=== PATIENT | female | born 1965 | race Caucasian/White ===

== ENCOUNTER 2016-09-02 11:27 | Emergency (ER) | payer BC ==
[~2016-09-02] VITALS: Ht 172.7 cm; Wt 88.8 kg
[2016-09-02 11:38] VITALS: Ht 172.7 cm; Wt 88.8 kg
--- NOTE | 2016-09-02 12:28 | NUR ---
PROVIDER DR PAUL AT BEDSIDE FOR DENTAL BLOCK
[2016-09-02] MEDS ORDERED: BUPIVACAINE 0.5%/EPI 1:200K *DENTAL* 1.8ml SYRINGE INJ ONE (12:30)
[2016-09-02] MEDS ORDERED: CEFDINIR 300 MG CAPSULE PO ONE (12:30)
--- NOTE | 2016-09-02 12:33 | ERPDOC ---
Departure Disposition Decision Date: September 02, 2016 Disposition Decision Time: 12:40 Disposition: 01 DISCHARGED HOME, SELF-CARE Impression Impression Impression: Primary Impression: Dental abscess Severity: Severe Condition: Improved Seen By: Physician only Referrals: YOUR DENTIST 3 Days YOUR PHYSICIAN 1 Week Patient Instructions: Dental Abscess (ED) Problems/Meds/Labs Reviewed?: Yes Medications reviewed and manag: Yes Additional Instructions: You have an infection of your tooth socket. We have helped your pain with an injection. Take the antibiotic as prescribed and use the pain medication, if tylenol and ibuprofen do not help your pain. Follow up with your dentist and doctor to make sure that you are improving. Follow up care ordered?: Yes Mental Status: Alert, Oriented Scripts Cefdinir (Cefdinir) 300 Mg Capsule 300 MG PO BID for 10 Days, CAP Prov: AUGUST DO 09/02/16 Hydrocodone/Acetaminophen (Taylor 5-325 Tablet) 5-325 Tablet 1 TAB PO Q6HR Y for PAIN, #20 TAB 0 Refills Prov: DO 09/02/16 HPI General Chief Complaint: Toothache Stated Complaint: TOOTH PAIN, POSS INFECTION Time Seen by Provider: 12:16 Source: patient Exam Limitations: no limitations HPI Dental Initial Comments 51yo woman presents to the ER today with dental pain. Pt had a tooth extracted 4 days ago. Has had left maxillary pain ever since. Pt did take the rx'ed clindamycin prior to the procedure, but stopped because it gave her diarrhea. Pt has a h/o similar sx following prior dental extractions. Occurred At: home Onset: Rapid Duration: other Pain Scale: Now & Worst: 7/10 Severity: severe Location: L upper 1 - Purulent drainage from new extraction Associated Symptoms: headache Allergies: Coded Allergies: Penicillins (Verified Allergy, Unknown, 09/02/16) Past History Past Medical History Integumentary: eczema Review of Systems ENMT Teeth: missing teeth, pain Exam General General Nourishment: well nourished, well developed, appears stated age, no acute distress, adult, obese General Body Habitus: well groomed Vital Signs: RN Vital Signs have been reviewed: Yes, Temperature: 97.9, Source : Oral, Heart Rate: 68, Respiratory Rate: 18, BP: 145/79, Pulse Oximetry: 97 Height (Feet): 5 Height (Inches): 8.00 Fastrak Dental Face: NOT FOUND: bruising, erythema, swelling Jaw: NOT FOUND: asymmetry Glands: NOT FOUND: L parotid swollen, R parotid swollen Ducts: NOT FOUND: L Wilkinson's blocked, R Anna's blocked Lips: NOT FOUDN: laceration, swelling Gums: exudate, pink, swelling, NOT FOUND: moist Tongue: NOT FOUND: geographic, swelling Neurologic RN Documented GCS Eye Opening: Verbal: Motor: Total: Supervisory Exam Head: atraumatic Eyes: PERRL Nares: no exudate Neck: trachea midline Chest: symmetric Abdomen: non-distended Musculoskeletal: no deformity or atrophy Neurological: no abnormal movements Skin: pink, dry Psychological: alert, appropriate Differential Diagnoses Considering: Gingival Abscess, Caries, Gingivitis, Other (Periodontal abscess) Procedures Procedures Performed Procedures Performed: Dental Block Dental Block Procedure Dental Block : Pain Scale Pre: 7 Location: infra-orbital Method: external approach Anesthetic: 0.5% Bupivicaine Volume of Anesthetic (cc's): 1.8 Pain Scale Post: 3 Progress Results/Orders Orders Procedure Category Date Status Time Bupivacaine/Epi PHA 09/02/16 Complete *Dental* (Marcaine 12:30 Cefdinir (Omnicef) PHA 09/02/16 Complete 12:30 Medications Current ED Medications Bupivacaine HCl/ Epinephrine Bitart (Marcaine *Dental*) 1.8 ml O ONCE INJ Last administered on 09/02/16 12:27; Start 09/02/16 at 12:30; Stop 09/02/16 at 12: 31; Status DC Cefdinir (Omnicef) 300 mg O ONCE PO Last administered on 09/02/16 12:27; Start 09/02/16 at 12:30; Stop 09/02/16 at 12:31; Status DC Progress Progress Evaluation, hx gathering, and PE all performed with help of manager financial systems service. Pt with dental abscess. Pain improved with regional block; will give cephalosporin for coverage of typical oral janes. F/u with PCM and dentist. ELISA PAUL DO September 02, 2016 12:33
[2016-09-02] MEDS ORDERED: HYDR-4246 PO (12:43)
[2016-09-02] MEDS ORDERED: CEFD300C3 PO (12:43)
[2016-09-02 13:00] VITALS: BP 133/71; PULSE 71; RESP 16; TEMP 97.9; O2SAT 98
--- NOTE | 2016-09-02 13:00 | NUR ---
DISMISSAL DISMISSAL INSTRUCTIONS WITH RX FOR CECLOR AND NORCO. INSTRUCTIONS GIVEN VIA [employer]. NO FURTHER QUESTIONS AT THIS TIME. PT LEFT DEPARTMENT AMBUALTORY
== END 2016-09-02 13:00 | disposition home or self-care (01) ==
LOC: ED 11:27
DX: K04.7 Periapical abscess without sinus (principal)
CPT/HCPCS: 64400; 99283; S0020